=== PATIENT | female | born 1945 | race African-American/Black ===

== ENCOUNTER 2022-11-19 04:14 | Inpatient (IN) ==
[2022-11-19] MEDS ORDERED: Ondansetron 4 mg VIAL 2 MG/ML 2 ml VIAL IV ONE (04:22)
[2022-11-19] MEDS ORDERED: NS 0.9% 1000 ml BAG 1,000 ML IV ONE (04:22)
[2022-11-19 06:25] LABS: ABS Basophils 0.1 10^3/ul (0-0.2); ABS Lymphocytes 0.6 10^3/ul (1.0-4.8); ABS Monocytes 0.4 10^3/ul (0-0.8); ABS Neutrophils 15.6 10^3/ul (1.5-7.7); Eosinophil % 0.1 %; Hematocrit 43 % (35-47); Hemoglobin 13.9 g/dL (12.0-16.0); Lymphocyte % 3.7 %; Mean Corpuscular HGB Conc 33 g/dL (31-36); Mean Corpuscular Hemoglobin 26 pg (27-31); Mean Corpuscular Volume 80 fL (80-97); Mean Platelet Volume 8.6 fL (7.4-10.4); Platelet Count 274 10^3/uL (150-450); Red Blood Count 5.36 10^6 /uL (3.70-4.87); Red Cell Distribution Width 18 % (10-15); White Blood Count 16.6 10^3/uL (3.5-10.8)
[2022-11-19 06:32] LABS: INR 1.07 (0.88-1.18)
[2022-11-19 06:47] LABS: High Sens Troponin Baseline 9 pg/mL (<15)
[2022-11-19 07:02] LABS: ALT 10 U/L (7-52); Albumin 4.7 g/dL (3.2-5.2); Albumin/Globulin Ratio 1.9 (1-3); Alkaline Phosphatase 73 U/L (35-149); Blood Urea Nitrogen 19 mg/dL (6-24); C Reactive Protein 8.72 mg/L (<8.01); CO2 Carbon Dioxide 26 mmol/L (22-32); Calcium 9.8 mg/dL (8.6-10.3); Chloride 100 mmol/L (101-111); Creatinine, Serum 0.75 mg/dL (0.51-0.95); Globulin 2.5 g/dL (2-4); Glucose 222 mg/dL (70-100); Lipase < 10 U/L (11.0-82.0); Sodium 135 mmol/L (135-145); Total Protein 7.2 g/dL (6.4-8.9); eGFR CKD-EPI 81.9 (>60)
[2022-11-19] MEDS ORDERED: Iodixanol (CONTRAST) 320 MG/ML 100 ML SDV IV ONE (07:43)
[2022-11-19 07:56] LABS: Anion Gap 9 mmol/L (2-11)
[2022-11-19 08:26] LABS: High Sensitivity Troponin 1 Hr 12 pg/mL (<15)
[2022-11-19 08:46] LABS: Potassium Redraw 4.5 mmol/L (3.5-5.0)
[2022-11-19 09:56] LABS: Urine Appearance Clear; Urine Bilirubin Negative (Negative); Urine Blood 1+ (Negative); Urine Color Yellow; Urine Glucose Negative (Negative); Urine Ketones Negative (Negative); Urine Nitrite Negative (Negative); Urine Protein 1+(30 mg/dL) (Negative); Urine Urobilinogen Negative (Negative)
[2022-11-19 10:02] LABS: Urine Bacteria Absent (Absent); Urine Red Blood Cell Trace(0-2/hpf) (Absent); Urine White Blood Cell Absent (Absent)
[2022-11-19 13:00] LABS: Transferrin 224 mg/dL (203-362)
[2022-11-19 13:18] LABS: Ferritin 24.1 ng/mL (11-307)
[2022-11-19] MEDS ORDERED: Morphine 4 MG/ML VIAL (1 ml) IV ONE (13:27)
[2022-11-19] MEDS ORDERED: Dextrose 50% Syringe 50 ml 25 GM/50 ML SYRINGE IV PUSH PRN (14:12)
[2022-11-19] MEDS: NS 0.9% 1000 ml BAG 1,000 ML IV SCH (15:01)
[2022-11-19] MEDS ORDERED: Diatrizoate Meg/Sod(CONTRAST) 30 ML ORAL.SOLN PO ONE (15:12)
[2022-11-19 19:59] LABS: Erythrocyte Sed Rate 13 mm/Hr (0-29)
[2022-11-19] MEDS: Enoxaparin 40 MG/0.4 ML SYR SUBCUT SCH (21:32)
[2022-11-20] MEDS: Ondansetron 4 mg VIAL 2 MG/ML 2 ml VIAL IV PRN (02:19)
[2022-11-20] MEDS: NS 0.9% 1000 ml BAG 1,000 ML IV SCH ×3 (05:37→20:47)
[2022-11-20 06:56] LABS: ABS Basophils 0.1 10^3/ul (0-0.2); ABS Eosinophils 0.1 10^3/ul (0-0.6); ABS Lymphocytes 1.3 10^3/ul (1.0-4.8); ABS Monocytes 0.7 10^3/ul (0-0.8); ABS Neutrophils 7.5 10^3/ul (1.5-7.7); Eosinophil % 0.7 %; Hematocrit 38 % (35-47); Hemoglobin 12.8 g/dL (12.0-16.0); Lymphocyte % 13.1 %; Mean Corpuscular HGB Conc 33 g/dL (31-36); Mean Corpuscular Hemoglobin 27 pg (27-31); Mean Corpuscular Volume 80 fL (80-97); Mean Platelet Volume 8.1 fL (7.4-10.4); Nucleated Red Blood Cells % 0.2; Platelet Count 199 10^3/uL (150-450); Red Blood Count 4.77 10^6 /uL (3.70-4.87); Red Cell Distribution Width 18 % (10-15); White Blood Count 9.6 10^3/uL (3.5-10.8)
[2022-11-20 07:58] LABS: Calcium 8.7 mg/dL (8.6-10.3); Creatinine, Serum 0.63 mg/dL (0.51-0.95); Potassium 4.3 mmol/L (3.5-5.0); eGFR CKD-EPI 91.3 (>60)
[2022-11-20] MEDS: Morphine 2 MG/ML SYRINGE IV PRN (12:36)
[2022-11-20] MEDS: Enoxaparin 40 MG/0.4 ML SYR SUBCUT SCH (20:43)
[2022-11-20] MEDS ORDERED: Iodixanol (CONTRAST) 320 MG/ML 100 ML SDV IV ONE (21:09)
[2022-11-21 06:02] LABS: ABS Basophils 0.1 10^3/ul (0-0.2); ABS Eosinophils 0.1 10^3/ul (0-0.6); ABS Lymphocytes 1.2 10^3/ul (1.0-4.8); ABS Monocytes 0.7 10^3/ul (0-0.8); ABS Neutrophils 7.8 10^3/ul (1.5-7.7); Eosinophil % 1.1 %; Hematocrit 35 % (35-47); Hemoglobin 11.7 g/dL (12.0-16.0); Lymphocyte % 12.3 %; Mean Corpuscular HGB Conc 33 g/dL (31-36); Mean Corpuscular Hemoglobin 27 pg (27-31); Mean Corpuscular Volume 80 fL (80-97); Nucleated Red Blood Cells % 0.1; Platelet Count 155 10^3/uL (150-450); Red Blood Count 4.39 10^6 /uL (3.70-4.87); Red Cell Distribution Width 18 % (10-15); White Blood Count 9.8 10^3/uL (3.5-10.8)
[2022-11-21 06:28] LABS: Calcium 8.2 mg/dL (8.6-10.3); Creatinine, Serum 0.59 mg/dL (0.51-0.95); eGFR CKD-EPI 92.8 (>60)
[2022-11-21] MEDS: NS 0.9% 1000 ml BAG 1,000 ML IV SCH (09:49)
[2022-11-21] MEDS: Ondansetron 4 mg VIAL 2 MG/ML 2 ml VIAL IV PRN (09:58)
[2022-11-21] MEDS: Enoxaparin 40 MG/0.4 ML SYR SUBCUT SCH (21:30)
[2022-11-21] MEDS: Morphine 2 MG/ML SYRINGE IV PRN (21:30)
[2022-11-22] MEDS: NS 0.9% 1000 ml BAG 1,000 ML IV SCH (06:47)
[2022-11-22] MEDS: Enoxaparin 40 MG/0.4 ML SYR SUBCUT SCH (21:22)
[2022-11-23] MEDS: Ondansetron 4 mg VIAL 2 MG/ML 2 ml VIAL IV PRN (06:49)
[2022-11-23 06:59] LABS: ABS Basophils 0.1 10^3/ul (0-0.2); ABS Eosinophils 0.1 10^3/ul (0-0.6); ABS Lymphocytes 0.6 10^3/ul (1.0-4.8); ABS Monocytes 0.5 10^3/ul (0-0.8); ABS Neutrophils 8.5 10^3/ul (1.5-7.7); Eosinophil % 0.7 %; Hematocrit 36 % (35-47); Hemoglobin 11.9 g/dL (12.0-16.0); Lymphocyte % 6.1 %; Mean Corpuscular HGB Conc 33 g/dL (31-36); Mean Corpuscular Hemoglobin 27 pg (27-31); Mean Corpuscular Volume 81 fL (80-97); Mean Platelet Volume 7.9 fL (7.4-10.4); Nucleated Red Blood Cells % 0.1; Platelet Count 169 10^3/uL (150-450); Red Blood Count 4.42 10^6 /uL (3.70-4.87); Red Cell Distribution Width 18 % (10-15); White Blood Count 9.7 10^3/uL (3.5-10.8)
[2022-11-23 07:12] LABS: Calcium 8.6 mg/dL (8.6-10.3); Creatinine, Serum 0.44 mg/dL (0.51-0.95); Magnesium 1.7 mg/dL (1.9-2.7); Potassium 3.8 mmol/L (3.5-5.0); eGFR CKD-EPI 99.6 (>60)
[2022-11-23] MEDS ORDERED: Magnesium Sulfate IV 3 GM in NS 0.9% 100 ml BAG 100 ML IVPB ONE (10:30)
[2022-11-23] MEDS: Enoxaparin 40 MG/0.4 ML SYR SUBCUT SCH (21:14)
[2022-11-24] MEDS ORDERED: Magnesium Hydroxide LIQ 30 ML UDC PO ONE (09:25)
[2022-11-24 11:09] VITALS: BP 147/79
== END 2022-11-24 14:45 | disposition home or self-care (01) | DRG 391 ==
LOC: EDHOLD 04:14 → ED 04:14 → SSU 17:35 → SUATTDRO 11-20 21:17
PROVIDERS: ADMIT Internal Medicine; ATTEND Internal Medicine

== ENCOUNTER 2023-03-25 07:57 | Inpatient (IN) ==
[~2023-03-25 07:57] MED LIST: Buffered Lidocaine 1% SYRIN 1 ml INTRADERM ONE; Lactated Ringers 1000 ml BAG 1,000 ML IV SCH; Naloxone 0.4 mg VIAL 0.4 mg/ml 1 ml VIAL IV PRN; Ondansetron 4 mg VIAL 2 MG/ML 2 ml VIAL IV PRN; fentaNYL 100 mcg/2 ml 50 MCG/ML VIAL IV PRN
[2023-03-25] MEDS ORDERED: ceFAZolin 2 GM in NS PREMIX 2 GM/100 ML BAG IVPB ONE (09:20)
[2023-03-25] MEDS ORDERED: Tranexamic Acid 1 GM/100ML BAG 2,000 MG/200 ML BAG IV ONE (09:20)
[2023-03-25 09:43] LABS: Rapid COVID-19 Molecular Undetected (Undetected)
[2023-03-25] MEDS ORDERED: Bupivacaine 0.25% SDV 30 ML ONE (10:24)
[2023-03-25] MEDS ORDERED: Bupivacaine 0.25% EPI 200,000 30 ML SDV ONE (10:24)
[2023-03-25] MEDS ORDERED: Phenylephrine IV 10 MG/ML 1 ml VIAL ONE (10:38)
[2023-03-25] MEDS ORDERED: Midazolam 2 mg/2 ml VIAL 1 mg/ml 2 ml VIAL (2 mg) ONE ×2 (10:38→14:15)
[2023-03-25] MEDS ORDERED: fentaNYL 100 mcg/2 ml 50 MCG/ML VIAL ONE ×2 (10:38→14:16)
[2023-03-25] MEDS ORDERED: Lidocaine 2% PF 5 ML VIAL ONE (10:38)
[2023-03-25] MEDS ORDERED: Phenylephrine 40 mcg/mL 10mL (400mcg) SYRINGE ONE (10:39)
[2023-03-25] MEDS ORDERED: Ondansetron 4 mg VIAL 2 MG/ML 2 ml VIAL ONE (10:39)
[2023-03-25] MEDS ORDERED: Dexamethasone IV 4 MG/ML VIAL 1 ml VIAL ONE (10:39)
[2023-03-25] MEDS ORDERED: BUPIVACAINE **LIPOSOME/PF 13.3 MG/ML (266MG/ 20ML) VIAL (RESTRICTED) INFIL ONE (11:00)
[2023-03-25] MEDS ORDERED: Glycopyrrolate IV 0.2 MG/ML 1 ML VIAL ONE (12:56)
[2023-03-25] MEDS ORDERED: Acetaminophen IV 1 GM/100ML 1,000 MG/100 ML BAG IV ONE (14:03)
[2023-03-25] MEDS ORDERED: Propofol 10 MG/ML 20 ML BTL ONE (14:19)
[2023-03-25] MEDS ORDERED: Lactulose 30 ml UDC PO PRN (14:42)
[2023-03-25] MEDS ORDERED: Magnesium Hydroxide LIQ 30 ML UDC PO PRN (14:42)
[2023-03-25] MEDS ORDERED: Ondansetron ODT 4 mg TAB 4 MG TAB PO PRN (14:42)
[2023-03-25] MEDS ORDERED: Ondansetron 4 mg VIAL 2 MG/ML 2 ml VIAL IV PRN (14:42)
[2023-03-25] MEDS ORDERED: ceFAZolin 1 GM ADVAN 1 GM in NS 0.9% 50 ML 50 ML IVPB SCH (15:00)
[2023-03-25] MEDS ORDERED: Dextrose 50% Syringe 50 ml 25 GM/50 ML SYRINGE IV PUSH PRN (16:05)
[2023-03-25] MEDS: Lactated Ringers 1000 ml BAG 1,000 ML IV SCH (16:56)
[2023-03-25] MEDS: Morphine 2 MG/ML SYRINGE IV PRN (20:25)
[2023-03-25] MEDS: Magnesium Hydroxide LIQ 30 ML UDC PO SCH (20:31)
[2023-03-25] MEDS: ceFAZolin 1 GM ADVAN 1 GM in NS 0.9% 50 ML 50 ML IVPB SCH (20:39)
[2023-03-26] MEDS: ceFAZolin 1 GM ADVAN 1 GM in NS 0.9% 50 ML 50 ML IVPB SCH ×2 (04:29→12:11)
[2023-03-26 08:25] LABS: Hematocrit 32.2 % (35-45); Hemoglobin 10.9 g/dL (11.5-14.3); Platelet Count 185 10^3/uL (150-450)
[2023-03-26] MEDS: Vitamin THERAPEUTIC TAB PO SCH (08:39)
[2023-03-26] MEDS: Magnesium Hydroxide LIQ 30 ML UDC PO SCH ×2 (08:41→20:54)
[2023-03-26 08:47] LABS: Calcium 8.9 mg/dL (8.6-10.3); Creatinine, Serum 0.7 mg/dL (0.51-0.95); Potassium 4.1 mmol/L (3.5-5.0)
[2023-03-26] MEDS: Lactated Ringers 1000 ml BAG 1,000 ML IV SCH (13:38)
[2023-03-27] MEDS: Morphine 2 MG/ML SYRINGE IV PRN (02:22)
[2023-03-27 06:13] LABS: Hemoglobin 10.8 g/dL (11.5-14.3); Mean Platelet Volume 8.2 fL (7.5-11.2); Platelet Count 223 10^3/uL (150-450)
[2023-03-27] MEDS: Vitamin THERAPEUTIC TAB PO SCH (09:49)
[2023-03-27] MEDS: Magnesium Hydroxide LIQ 30 ML UDC PO SCH ×2 (09:50→22:02)
[2023-03-27] MEDS ORDERED: Furosemide 40 mg/4 ml IV VIAL IV SLOW PU ONE (15:44)
[2023-03-28 06:47] LABS: Hematocrit 27.9 % (35-45); Hemoglobin 9.6 g/dL (11.5-14.3); Mean Platelet Volume 8.2 fL (7.5-11.2); Platelet Count 195 10^3/uL (150-450)
[2023-03-28] MEDS ORDERED: Furosemide 40 mg/4 ml IV VIAL IV SLOW PU ONE (08:00)
[2023-03-28] MEDS: Magnesium Hydroxide LIQ 30 ML UDC PO SCH ×2 (08:01→22:04)
[2023-03-28] MEDS: Vitamin THERAPEUTIC TAB PO SCH (08:03)
[2023-03-29 06:20] LABS: Platelet Count 230 10^3/uL (150-450)
[2023-03-29] MEDS: Vitamin THERAPEUTIC TAB PO SCH (08:16)
[2023-03-29] MEDS: Magnesium Hydroxide LIQ 30 ML UDC PO SCH ×2 (08:17→21:28)
[2023-03-30 06:48] LABS: Hematocrit 27.5 % (35-45); Hemoglobin 9.3 g/dL (11.5-14.3); Mean Platelet Volume 7.9 fL (7.5-11.2); Platelet Count 264 10^3/uL (150-450)
[2023-03-30] MEDS: Vitamin THERAPEUTIC TAB PO SCH (07:21)
[2023-03-30] MEDS: Magnesium Hydroxide LIQ 30 ML UDC PO SCH (07:21)
[2023-03-30 10:17] VITALS: BP 124/75
== END 2023-03-30 14:34 | DRG 470 ==
LOC: OR 07:57 → SSU 07:57 → OBSVTOIN 17:11
PROVIDERS: ADMIT Orthopaedic Surgery Sports Medicine; ATTEND Orthopaedic Surgery Sports Medicine

== ENCOUNTER 2023-05-24 16:43 | Observation (INO) ==
[2023-05-25 09:18] LABS: ABS Basophils 0.1 10^3/uL (0.0-0.1); ABS Eosinophils 0.1 10^3/uL (0.0-0.5); ABS Monocytes 0.4 10^3/uL (0.0-0.9); ABS Neutrophils 5.9 10^3/uL (1.5-7.6); ABS Nucleated RBC 0.01 10^3/ul; Eosinophil % 1.2 %; Hematocrit 32.1 % (35-45); Hemoglobin 10.9 g/dL (11.5-14.3); Lymphocyte % 13.8 %; Mean Corpuscular Hemoglobin 26.3 pg (27-33); Mean Corpuscular Hgb Conc 34.1 g/dL (31-36); Mean Corpuscular Volume 77.2 fL (80-97); Mean Platelet Volume 7.3 fL (7.5-11.2); Nucleated Red Blood Cells % 0.1 /100 WBC (0.0-0.4); Platelet Count 242 10^3/uL (150-450); Red Blood Count 4.16 10^6/uL (3.63-4.92); Red Cell Distribution Width 19.8 % (12-17); White Blood Count 7.5 10^3/uL (3.8-11.8)
[2023-05-25 09:32] LABS: Albumin 3.4 g/dL (3.2-5.2); Calcium 8.6 mg/dL (8.6-10.3); Magnesium 2.1 mg/dL (1.9-2.7); Potassium 4.1 mmol/L (3.5-5.0); Total Bilirubin 0.6 mg/dL (0.2-1.0)
[2023-05-25 09:38] LABS: Albumin/Globulin Ratio 1.1 (1-3); Creatinine, Serum 0.66 mg/dL (0.51-0.95); Globulin 3.2 g/dL (2-4); Total Protein 6.6 g/dL (6.4-8.9); eGFR CKD-EPI 90.3 (>60)
[2023-05-25 09:49] LABS: Urine Appearance Clear; Urine Bilirubin Negative (Negative); Urine Blood Negative (Negative); Urine Color Yellow; Urine Glucose Negative (Negative); Urine Ketones Negative (Negative); Urine Nitrite Negative (Negative); Urine Protein Negative (Negative); Urine Urobilinogen Negative (Negative)
[2023-05-25 09:56] LABS: Urine Bacteria Absent (Absent); Urine Red Blood Cell Trace(0-2/hpf) (Absent); Urine Squamous Epithelial Cell Present (Absent); Urine White Blood Cell Trace(0-5/hpf) (Absent)
[2023-05-25] MEDS ORDERED: Dextrose 50% Syringe 50 ml 25 GM/50 ML SYRINGE IV PUSH PRN (20:54)
[2023-05-26] MEDS ORDERED: Morphine 2 MG/ML SYRINGE IV PRN (03:40)
[2023-05-26 06:12] LABS: ABS Basophils 0.1 10^3/uL (0.0-0.1); ABS Eosinophils 0.1 10^3/uL (0.0-0.5); ABS Lymphocytes 0.9 10^3/uL (1.0-4.8); ABS Monocytes 0.4 10^3/uL (0.0-0.9); ABS Neutrophils 5.3 10^3/uL (1.5-7.6); Eosinophil % 1.7 %; Hemoglobin 10.2 g/dL (11.5-14.3); Mean Corpuscular Hemoglobin 26.1 pg (27-33); Mean Corpuscular Volume 76.9 fL (80-97); Mean Platelet Volume 7.8 fL (7.5-11.2); Platelet Count 223 10^3/uL (150-450); Red Cell Distribution Width 20.1 % (12-17); White Blood Count 6.7 10^3/uL (3.8-11.8)
[2023-05-26 06:33] LABS: Calcium 8.1 mg/dL (8.6-10.3); Magnesium 1.9 mg/dL (1.9-2.7)
[2023-05-26 06:38] LABS: Creatinine, Serum 0.61 mg/dL (0.51-0.95)
[2023-05-26] MEDS ORDERED: Senna TAB 8.6 mg TAB PO ONE (13:57)
[2023-05-26] MEDS ORDERED: Polyethylene Glycol 3350 17 GM PACKET PO PRN (14:30)
[2023-05-26] MEDS ORDERED: Senna TAB 8.6 mg TAB PO PRN (14:30)
[2023-05-26] MEDS ORDERED: Magnesium Hydroxide LIQ 30 ML UDC PO PRN (14:30)
[2023-05-26] MEDS: Magnesium Hydroxide LIQ 30 ML UDC PO SCH (21:05)
[2023-05-27] MEDS: Magnesium Hydroxide LIQ 30 ML UDC PO SCH (08:06)
[2023-05-27] MEDS ORDERED: Sodium Phosphate ADULT ENEMA 133 ML BTL PR ONE (10:34)
[2023-05-27 10:54] VITALS: BP 149/70
== END 2023-05-27 13:00 ==
LOC: EDHOLD 16:43 → ED 16:43 → SUATTDRO 05-25 14:30 → SSU 05-25 17:35
PROVIDERS: ADMIT Internal Medicine; ATTEND Student in an Organized Health Care Education/Training Program

== ENCOUNTER 2024-01-07 21:14 | Inpatient (IN) ==
[2024-01-07] MEDS: Lidocaine PATCH 5% PATCH TRANSDERM SCH (23:44)
[2024-01-08 08:17] LABS: ABS Basophils 0.1 10^3/uL (0.0-0.1); ABS Eosinophils 0.1 10^3/uL (0.0-0.5); ABS Lymphocytes 1.1 10^3/uL (1.0-4.8); ABS Monocytes 0.7 10^3/uL (0.0-0.9); ABS Neutrophils 6.2 10^3/uL (1.5-7.6); ABS Nucleated RBC 0.02 10^3/ul; Eosinophil % 0.8 %; Lymphocyte % 13.9 %; Mean Platelet Volume 8.7 fL (7.5-11.2); Nucleated Red Blood Cells % 0.2 %/100WBC (0.0-0.8); Platelet Count 220 10^3/uL (150-450)
[2024-01-08 08:20] LABS: Hematocrit 36.8 % (35-45); Hemoglobin 12.3 g/dL (11.5-14.3); Mean Corpuscular Hemoglobin 25.8 pg (27-33); Mean Corpuscular Hgb Conc 33.5 g/dL (31-36); Mean Corpuscular Volume 77.2 fL (80-97); Red Blood Count 4.77 10^6/uL (3.63-4.92); Red Cell Distribution Width 19.8 % (12-17); White Blood Count 8.1 10^3/uL (3.8-11.8)
[2024-01-08 08:48] LABS: ALT 8 U/L (7-52); Albumin 3.7 g/dL (3.2-5.2); Albumin/Globulin Ratio 1.5 (1-3); Alkaline Phosphatase 63 U/L (35-149); Anion Gap 7 mmol/L (2-16); Blood Urea Nitrogen 17 mg/dL (6-24); CO2 Carbon Dioxide 26 mmol/L (22-32); Calcium 8.7 mg/dL (8.6-10.3); Chloride 107 mmol/L (101-111); Creatinine, Serum 0.66 mg/dL (0.51-0.95); Globulin 2.4 g/dL (2-4); Glucose 110 mg/dL (70-100); Sodium 140 mmol/L (135-145); Total Bilirubin 0.4 mg/dL (0.2-1.0); Total Protein 6.1 g/dL (6.4-8.9); eGFR CKD-EPI 89.7 (>60)
[2024-01-08 09:16] LABS: Erythrocyte Sed Rate 13 mm/Hr (0-29)
[2024-01-08] MEDS: Morphine 4 MG/ML VIAL (1 ml) IV ONE (15:11)
[2024-01-08] MEDS: Ondansetron 4 mg VIAL 2 MG/ML 2 ml VIAL IV PRN (17:39)
[2024-01-08] MEDS: Morphine 4 MG/ML VIAL (1 ml) IV PRN (22:12)
[2024-01-09 08:27] LABS: Potassium Redraw 4.9 mmol/L (3.5-5.0)
[2024-01-10 06:00] LABS: ABS Eosinophils 0.1 10^3/uL (0.0-0.5); ABS Lymphocytes 0.7 10^3/uL (1.0-4.8); ABS Monocytes 0.5 10^3/uL (0.0-0.9); ABS Neutrophils 6.5 10^3/uL (1.5-7.6); ABS Nucleated RBC 0.01 10^3/ul; Eosinophil % 1.8 %; Hematocrit 33.8 % (35-45); Hemoglobin 11.4 g/dL (11.5-14.3); Lymphocyte % 9.3 %; Mean Corpuscular Hgb Conc 33.7 g/dL (31-36); Mean Platelet Volume 8.5 fL (7.5-11.2); Nucleated Red Blood Cells % 0.1 %/100WBC (0.0-0.8); Platelet Count 211 10^3/uL (150-450); Red Blood Count 4.39 10^6/uL (3.63-4.92); Red Cell Distribution Width 19.5 % (12-17); White Blood Count 7.9 10^3/uL (3.8-11.8)
[2024-01-10 06:15] LABS: Calcium 8.4 mg/dL (8.6-10.3); Creatinine, Serum 0.67 mg/dL (0.51-0.95); Magnesium 2.1 mg/dL (1.9-2.7); Potassium 4.6 mmol/L (3.5-5.0); eGFR CKD-EPI 89.4 (>60)
[2024-01-10] MEDS ORDERED: Magnesium Hydroxide LIQ 30 ML UDC PO PRN (07:21)
[2024-01-10] MEDS ORDERED: Polyethylene Glycol 3350 17 GM PACKET PO PRN (07:21)
[2024-01-10] MEDS: Magnesium Hydroxide LIQ 30 ML UDC PO SCH (10:10)
[2024-01-10 14:13] LABS: Ferritin 42.9 ng/mL (11-307)
[2024-01-11] MEDS ORDERED: fentaNYL 100 mcg/2 ml 50 MCG/ML VIAL IV PRN (13:23)
[2024-01-11] MEDS ORDERED: Naloxone 0.4 mg VIAL 0.4 mg/ml 1 ml VIAL IV PRN (13:23)
[2024-01-11] MEDS ORDERED: Ondansetron 4 mg VIAL 2 MG/ML 2 ml VIAL IV PRN (13:23)
[2024-01-11] MEDS: Senna TAB 8.6 mg TAB PO PRN (21:11)
[2024-01-12] MEDS ORDERED: Lidocaine 2% PF 5 ML VIAL ONE (06:44)
[2024-01-12] MEDS ORDERED: fentaNYL 100 mcg/2 ml 50 MCG/ML VIAL ONE (06:47)
[2024-01-12] MEDS ORDERED: Propofol 10 MG/ML 20 ML BTL ONE (06:47)
[2024-01-12] MEDS ORDERED: Midazolam 2 mg/2 ml VIAL 1 mg/ml 2 ml VIAL (2 mg) ONE (06:47)
[2024-01-12] MEDS ORDERED: Ondansetron 4 mg VIAL 2 MG/ML 2 ml VIAL ONE (06:47)
[2024-01-12] MEDS ORDERED: Dexamethasone IV 4 MG/ML VIAL 1 ml VIAL ONE (06:47)
[2024-01-12 09:07] LABS: ABS Basophils 0.1 10^3/uL (0.0-0.1); ABS Eosinophils 0.2 10^3/uL (0.0-0.5); ABS Lymphocytes 0.8 10^3/uL (1.0-4.8); ABS Monocytes 0.6 10^3/uL (0.0-0.9); ABS Neutrophils 4.6 10^3/uL (1.5-7.6); ABS Nucleated RBC 0.01 10^3/ul; Eosinophil % 2.8 %; Hematocrit 36.8 % (35-45); Hemoglobin 12.3 g/dL (11.5-14.3); Lymphocyte % 13.5 %; Mean Corpuscular Hemoglobin 25.7 pg (27-33); Mean Corpuscular Hgb Conc 33.3 g/dL (31-36); Mean Corpuscular Volume 77.2 fL (80-97); Mean Platelet Volume 7.9 fL (7.5-11.2); Nucleated Red Blood Cells % 0.1 %/100WBC (0.0-0.8); Platelet Count 216 10^3/uL (150-450); Red Blood Count 4.76 10^6/uL (3.63-4.92); Red Cell Distribution Width 19.4 % (12-17); White Blood Count 6.3 10^3/uL (3.8-11.8)
[2024-01-12 09:17] LABS: INR 1.09 (0.83-1.13)
[2024-01-12 10:01] LABS: Creatinine, Serum 0.59 mg/dL (0.51-0.95); Potassium 4.3 mmol/L (3.5-5.0); eGFR CKD-EPI 92.2 (>60)
[2024-01-12] MEDS: Lactated Ringers 1000 ml BAG 1,000 ML IV SCH (18:42)
[2024-01-12] MEDS: Buffered Lidocaine 1% SYRIN 1 ml INTRADERM ONE (19:45)
[2024-01-13] MEDS ORDERED: fentaNYL 100 mcg/2 ml 50 MCG/ML VIAL ONE ×4 (11:42→18:16)
[2024-01-13] MEDS ORDERED: Propofol 10 MG/ML 20 ML BTL ONE (11:43)
[2024-01-13] MEDS ORDERED: Lidocaine 2% PF 5 ML VIAL ONE (11:43)
[2024-01-13] MEDS ORDERED: Dexamethasone IV 4 MG/ML VIAL 1 ml VIAL ONE ×2 (12:20→16:07)
[2024-01-13] MEDS ORDERED: Ondansetron 4 mg VIAL 2 MG/ML 2 ml VIAL ONE ×3 (12:20→18:15)
[2024-01-13] MEDS ORDERED: ceFAZolin 2 GM PREMIX 2 GM/50 ML BAG ONE (13:00)
[2024-01-13] MEDS ORDERED: ROPIVACAINE 5 MG/ML 30 ML BTL (0.5%) ONE (13:41)
[2024-01-13] MEDS ORDERED: Rocuronium 50 mg VIAL 10 mg/ml 5 ml VIAL (50 mg) ONE (13:49)
[2024-01-13] MEDS ORDERED: Ondansetron ODT 4 mg TAB 4 MG TAB PO PRN (15:12)
[2024-01-13] MEDS ORDERED: Tranexamic Acid 1,000 MG/10 ML SDV ONE (15:35)
[2024-01-13] MEDS ORDERED: Acetaminophen IV 1 GM/100ML 1,000 MG/100 ML BAG IV ONE (16:07)
[2024-01-13] MEDS ORDERED: Bacitracin OINTMENT TUBE ONE (17:26)
[2024-01-13] MEDS ORDERED: Naloxone 0.4 mg VIAL 0.4 mg/ml 1 ml VIAL IV PRN (18:11)
[2024-01-13] MEDS ORDERED: Acetaminophen IV 1 GM/100ML 1,000 MG/100 ML BAG IV PRN (18:11)
[2024-01-13] MEDS ORDERED: HYDROmorphone 1 MG/1 ML SYRINGE IV PRN (18:11)
[2024-01-13] MEDS: fentaNYL 100 mcg/2 ml 50 MCG/ML VIAL IV PRN (18:17)
[2024-01-13] MEDS: Ondansetron 4 mg VIAL 2 MG/ML 2 ml VIAL IV PRN (18:17)
[2024-01-13] MEDS: Lactated Ringers 1000 ml BAG 1,000 ML IV SCH (20:29)
[2024-01-13] MEDS: Labetalol IV 5 MG/ML 20 ml VIAL IV PUSH ONE (22:44)
[2024-01-14] MEDS: ceFAZolin 1 GM ADVAN 1 GM in NS 0.9% 50 ML 50 ML IVPB SCH (00:17)
[2024-01-14 06:11] LABS: ABS Basophils 0.2 10^3/uL (0.0-0.1); ABS Lymphocytes 0.9 10^3/uL (1.0-4.8); ABS Monocytes 1.3 10^3/uL (0.0-0.9); Eosinophil % 0.2 %; Hematocrit 33.5 % (35-45); Lymphocyte % 6.4 %; Mean Corpuscular Hemoglobin 25.3 pg (27-33); Mean Corpuscular Hgb Conc 32.8 g/dL (31-36); Mean Corpuscular Volume 77.2 fL (80-97); Mean Platelet Volume 7.8 fL (7.5-11.2); Platelet Count 229 10^3/uL (150-450); Red Blood Count 4.34 10^6/uL (3.63-4.92); Red Cell Distribution Width 19.1 % (12-17); White Blood Count 13.4 10^3/uL (3.8-11.8)
[2024-01-14 06:49] LABS: Calcium 8.7 mg/dL (8.6-10.3); Creatinine, Serum 0.74 mg/dL (0.51-0.95); Potassium 4.6 mmol/L (3.5-5.0); eGFR CKD-EPI 82.8 (>60)
[2024-01-15 06:37] LABS: Hematocrit 30.9 % (35-45); Hemoglobin 10.3 g/dL (11.5-14.3); Mean Corpuscular Hemoglobin 25.7 pg (27-33); Mean Corpuscular Hgb Conc 33.4 g/dL (31-36); Mean Platelet Volume 8.3 fL (7.5-11.2); Platelet Count 193 10^3/uL (150-450); Red Blood Count 4.01 10^6/uL (3.63-4.92); Red Cell Distribution Width 18.6 % (12-17); White Blood Count 10.5 10^3/uL (3.8-11.8)
[2024-01-15 06:50] LABS: Calcium 8.5 mg/dL (8.6-10.3); Creatinine, Serum 0.73 mg/dL (0.51-0.95); Magnesium 2.3 mg/dL (1.9-2.7); Potassium 4.3 mmol/L (3.5-5.0); eGFR CKD-EPI 84.1 (>60)
[2024-01-15 06:51] LABS: ABS Eosinophils 0.1 10^3/uL (0.0-0.5); ABS Lymphocytes 0.9 10^3/uL (1.0-4.8); ABS Neutrophils 8.5 10^3/uL (1.5-7.6); Eosinophil % 0.8 %; Lymphocyte % 8.6 %
[2024-01-15] MEDS: Morphine 2 MG/ML SYRINGE IV PRN (08:50)
[2024-01-15] MEDS ORDERED: HYDROcodone/ACETAMIN 5/325 mg TAB PO PRN (09:15)
[2024-01-15] MEDS: Ondansetron 4 mg VIAL 2 MG/ML 2 ml VIAL IV PRN (09:15)
[2024-01-15] MEDS: HYDROcodone/ACETAMIN 5/325 mg TAB PO PRN (18:33)
[2024-01-15] MEDS: Lactulose 30 ml UDC PO PRN (22:17)
[2024-01-16 07:06] LABS: Hematocrit 28.6 % (35-45); Hemoglobin 9.5 g/dL (11.5-14.3); Mean Platelet Volume 7.7 fL (7.5-11.2); Platelet Count 203 10^3/uL (150-450)
[2024-01-16 11:28] LABS: Rapid COVID-19 Molecular Undetected (Undetected)
[2024-01-17 05:31] LABS: Hematocrit 28.5 % (35-45); Hemoglobin 9.6 g/dL (11.5-14.3); Platelet Count 217 10^3/uL (150-450)
[2024-01-17 09:50] VITALS: BP 140/60
== END 2024-01-17 11:55 | DRG 470 ==
LOC: EDHOLD 21:14 → ED 21:14 → SUATTDRO 01-08 16:24 → EDHOLD 01-09 08:18 → SUATTDRO 01-09 11:49 → MED 01-09 16:22 → SSU 01-09 16:39
PROVIDERS: ADMIT Internal Medicine; ATTEND Internal Medicine